=== PATIENT | male | born 1985 | race Two or more races ===

== ENCOUNTER → 2017-09-12 | Emergency (ER) | payer OTHER ==
[~2017-09-12] VITALS: Ht 177.8 cm; Wt 79.4 kg
[~2017-09-12] MED LIST: ALBUTEROL SULF8.5 GM INH; PREDNISONE20 MG ORAL
[2017-09-13] MEDS: Ipratropium 0.02% Inh Soln 2.5ml UD HHN SCH ×3 (00:15→00:46)
[2017-09-13] MEDS: Albuterol ud Inhalation HHN SCH ×3 (00:15→00:46)
--- NOTE | 2017-09-13 00:21 | Emergency Room Report ---
History of Present Illness General Chief Complaint: Dyspnea/Respdistress Source: Patient, EMS Present Illness HPI 32-year-old female with history of asthma, p/w SOB for 1 days. Patient states that he was "running" and then became short of breath + non productive cough. Denies chest pain. Patient states that he feels that his chest is very tight secondary to the asthma, states that he does not have an inhaler at home Denies fever, chills. Denies sick contacts or recent travel. Denies drinking alcohol or doing any drugs. States that when he landed, he fell onto his right wrist. Has an abrasion noted to his right wrist however states that his tetanus is up-to-date Allergies: Coded Allergies: PENICILLINS (Verified Allergy, Unknown, 09/12/17) Patient History Past Medical History: see triage record Past Surgical History: none Pertinent Family History: none Reviewed Nursing Documentation: PMH: Agreed, PSxH: Agreed Nursing Documentation-PMH Past Medical History: No History, Except For Hx Asthma: Yes Review of Systems All Other Systems: negative except mentioned in HPI Physical Exam Vital Signs Date Time Temp Pulse Resp B/P (MAP) Pulse Ox O2 Delivery O2 Flow Rate FiO2 09/12/17 22:23 98.8 84 16 120/85 98 Room Air 09/13/17 00:12 21 Sp02 EP Interpretation: reviewed, normal General Appearance: other - appears drowsy however arousable. calm and cooperative Head: normocephalic, atraumatic Eyes: bilateral eye normal inspection, bilateral eye PERRL, bilateral eye EOMI ENT: normal ENT inspection, normal pharynx, normal voice, moist mucus membranes Neck: normal inspection, full range of motion, supple Respiratory: other - wheezing b/l exp. no retractions no tachypneic Cardiovascular #1: normal inspection, regular rate, rhythm, no edema, normal capillary refill Cardiovascular #2: 2+ radial (R), 2+ radial (L) Gastrointestinal: normal inspection, non tender, soft, non-distended, no guarding Genitourinary: no CVA tenderness Musculoskeletal: other - R wrist with mild edema, FROM, abrasion noted lateral aspect Neurologic: normal inspection, alert, oriented x3, responsive, motor strength/ tone normal, sensory intact, normal gait, speech normal Psychiatric: normal inspection, judgement/insight normal, memory normal Skin: normal inspection, normal color, no rash, warm/dry, well hydrated, normal turgor Medical Decision Making Diagnostic Impression: Primary Impression: Asthma exacerbation Additional Impression: Wrist contusion ER Course 32-year-old male with history of asthma p/w SOB Also fell with right wrist pain DDX: Asthma exacerbation Right wrist contusion versus fracture Plan: Combivent nebulizer treatment x 3, steroids Right wrist x-ray ER Course: Patient has been treated with combivent x 3, steroids CXR reveals no acute infiltrate Patient's overall respiratory status has improved in ED. Patient states improvement of symptoms. Patient continues to speak in complete sentences and is not in respiratory distress. Repeat lung auscultation: good air entry with minimal/no wheezing. Disposition: Patient will be discharged to home with course of steroids , albuterol inhaler Strict precautions are discussed with patient on when to emergently return to the ED including: persistent or worsening SOB, chest pain, fever, chills, which could indicate severe illness. Patient verbalized understanding. Patient is to follow up with her/his PMD within 5 days. Patient agrees with plan. Please note that this Emergency Department Report was dictated using [email or web address] hand technology software, occasionally this can lead to erroneous entry secondary to interpretation by the dictation equipment. Xray: Right wrist 3 view Indication: Pain EP Interpretation: Yes Interpretation: No dislocation, no soft tissue swelling, no fractures Impression: No acute disease Electronically signed by Bradley Higginbotham MD Last Vital Signs Date Time Temp Pulse Resp B/P (MAP) Pulse Ox O2 Delivery O2 Flow Rate FiO2 09/13/17 00:13 21 09/13/17 00:13 75 22 95 Room Air 09/12/17 22:23 98.8 120/85 Disposition: HOME, SELF-CARE Condition: Improved Scripts Prednisone* (PREDNISONE*) 20 Mg Tablet 40 MG ORAL DAILY for 5 Days, #10 TAB 0 Refills Prov: Bradley Higginbotham M.D. 09/13/17 Albuterol Sulfate* (ALBUTEROL SULFATE MDI*) 8.5 Gm Hfa.aer.ad 2 PUFF INH Q4H Y for cough/wheezing, #1 EA 0 Refills Prov: Bradley Higginbotham M.D. 09/13/17 Patient Instructions: Asthma, Adult, Contusion Bradley Higginbotham M.D. Sep 13, 2017 00:21
[2017-09-13 01:58] VITALS: BP 128/85
[2017-09-13 05:20] VITALS: BP 117/76
[2017-09-13 05:30] VITALS: BP 117/76
--- NOTE | 2017-09-13 11:08 | Diagnostic Imaging Report ---
Indication: Pain Findings: 3 views of the right wrist were obtained. No acute fractures, malalignment, erosions or periostitis are identified. Soft tissues are unremarkable. Impression: No acute findings.
== END | disposition home or self-care (01) ==
LOC: EDBD 22:36 → EMR 23:15
DX: J45.901 Unspecified asthma with (acute) exacerbation (principal); S60.211A Contusion of right wrist, initial encounter; S60.811A Abrasion of right wrist, initial encounter; W19.XXXA Unspecified fall, initial encounter; Y92.414 Local residential or business street as the place of occurrence of the external cause; Z88.0 Allergy status to penicillin
CPT/HCPCS: 94640; 94664; 99284